=== PATIENT | male | born 1935 | race Caucasian/White ===

== ENCOUNTER 2020-04-14 09:00 | Day surgery (SDC) | payer MEDICARE, OTHER ==
[~2020-04-14] VITALS: Ht 167.6 cm; Wt 83.8 kg
[2020-04-14] VITALS (209 sets, daily range): BP systolic 84–132; BP diastolic 61–79; PULSE 69–93; TEMP 97.8–98; O2SAT 88–98
[~2020-04-14 09:00] MED LIST: ASPIRIN 32325 MG/TAB PO; ASPIRIN 81M81 MG/TA2 PO; BEE POLLEN500 M2 PO; CALCIUM + D 6001 TA1 PO; FORADIL AERO0.012 MG IH; GLUCOPHAGE1000 MG PO; GLUCOTROL 5M5 MG/TAB PO; MULTI VITAMINS1 TAB PO; NATURAL E400 IU PO; NICODERM C21 MG/PATC TOP; PLAVIX 75MG TAB75 MG PO; RT SPIRIVA18 MCG IH; THEO-DUR 3300 MG/TAB PO; THERAGRAN1 TA1 PO; TOPROL XL 50MG50 MG PO; VITAMIN B12100 MCG PO; ZESTRIL 10MG10 MG PO; ZOCOR 20MG20 MG PO
[2020-04-14] MEDS ORDERED: IPRATROPIUM BROM3 M1 IH (10:05)
[2020-04-14] MEDS ORDERED: LASIX 40MG TABL40 MG PO (10:05)
[2020-04-14] MEDS ORDERED: K-TAB20 PO (10:06)
[2020-04-14 10:07] LABS: HEMATOCRIT 51.1 % (42.0-52.0); HEMOGLOBIN 17.1 g/dl (13.5-18.0); MEAN CELL VOLUME 101 fl (80.0-100.0); MEAN CORPUSCULAR HEMOGLOBIN 34 pg (27.0-31.0); MEAN CORPUSCULAR HGB CONC 34 g/dl (33.0-37.0); MEAN PLATELET VOLUME 10.5 fl (7.4-10.4); PLATELET COUNT 149 K/mm3 (130-400); RED BLOOD COUNT 5.05 M/mm3 (4.20-5.60); REDCELL DISTRIBUTION WIDTH-CV 13.7 % (11.5-14.5)
[2020-04-14] MEDS ORDERED: VITAMIN C500 MG PO (10:08)
[2020-04-14] MEDS ORDERED: LANTUS100 U/ML SQ (10:08)
[2020-04-14] MEDS ORDERED: MAGNESIUM250 M1 PO (10:09)
[2020-04-14] MEDS ORDERED: COZAAR 25MG25 MG/TAB PO (10:09)
[2020-04-14] MEDS ORDERED: OMEGA-31 SGL PO (10:10)
[2020-04-14 10:12] LABS: INR 1.1 (0.8-3.0); PROTHROMBIN TIME 12.1 SECONDS (9.7-12.8)
[2020-04-14] MEDS ORDERED: VISION FORMULA1 EAC1 PO (10:13)
[2020-04-14 10:15] LABS: PARTIAL THROMBOPLASTIN TIME 32.7 SECONDS (26.0-37.0)
[2020-04-14 10:16] LABS: CALCIUM 8.7 mg/dL (8.4-10.2); CREATININE, serum 0.71 (0.66-1.25); POTASSIUM 4.3 mmol/L (3.4-5.0)
--- NOTE | 2020-04-14 11:42 | NUR ---
SEE MEREWILMA FOR ALL MEDICATION ADMINISTRATION TIMES AND INTRA AND POST SEDATION
--- NOTE | 2020-04-14 13:45 | NUR ---
Back from [employer] by cart. alert and oriented, denies pain and needs at this time. Right Tband with 17 cc air CD&I, good pulses and cap refill < 3 secs. VSS.
--- NOTE | 2020-04-14 16:30 | NUR ---
Right Tband deflated of 17 cc air, no bleeding noted at incision site, pressure dressing and arm board applied.
--- NOTE | 2020-04-14 17:20 | NUR ---
Report received from [facility] [employer]. Patient walked from express room to IMCU room. Tolerated well, some shortness of breath noted with ambulation. Patient placed on oxygen upon entry into IMCU and per [facility] report. Belongings in hand.
--- NOTE | 2020-04-14 17:22 | NUR ---
Report given to Nicole ESCOBAR. Ambulated with steady gait to [facility].
--- NOTE | 2020-04-14 19:19 | NUR ---
report received from SHAWN Rivera.
[2020-04-15] VITALS (235 sets, daily range): BP systolic 93–113; BP diastolic 57–67; PULSE 71–98; TEMP 97.8–98.4; O2SAT 80–98
[2020-04-15] MEDS ORDERED: BRILINTA90 MG PO (07:15)
[2020-04-15] MEDS ORDERED: LIPITOR20 MG PO (07:15)
[2020-04-15] MEDS ORDERED: ASPIRIN E.C. 8181 MG PO (07:16)
--- NOTE | 2020-04-15 07:16 | NUR ---
REPORT GIVEN TO SHAWN BLOUNT.
--- NOTE | 2020-04-15 10:55 | NUR ---
PT stable moved from unit via wheel chair. PT stable with no chief complaints. PTs friend is avialable to pick him up outside. PT is moved from wheel chair to vehicle with out complications. PT will call with any questions that may arise.
--- NOTE | 2020-04-15 11:49 | NUR ---
The patient discharged before social work professor could do intake.
== END 2020-04-15 10:55 | disposition home or self-care (01) ==
LOC: COL.CAR 09:00 → IMCU 17:03 → COL.CAR 04-15 10:55
PROVIDERS: Internal Medicine Cardiovascular Disease
DX: I25.119 Atherosclerotic heart disease of native coronary artery with unspecified angina pectoris (principal); I11.0 Hypertensive heart disease with heart failure; I50.20 Unspecified systolic (congestive) heart failure; I25.5 Ischemic cardiomyopathy; I35.0 Nonrheumatic aortic (valve) stenosis; I34.0 Nonrheumatic mitral (valve) insufficiency; E11.9 Type 2 diabetes mellitus without complications; E78.5 Hyperlipidemia, unspecified; F17.210 Nicotine dependence, cigarettes, uncomplicated; Z79.899 Other long term (current) drug therapy; Z88.5 Allergy status to narcotic agent
CPT/HCPCS: OP; C1725; C1769; C1874; C1887; C9600; J1644; J1940; J2250; J3010; Q9967

== ENCOUNTER 2020-07-28 10:00 | Outpatient (CLI) | payer MEDICARE, OTHER, BC ==
[~2020-07-28] VITALS: Ht 167.6 cm; Wt 85.0 kg
[~2020-07-28 10:00] MED LIST changes: +ASPIRIN E.C. 8181 MG PO; +BRILINTA90 MG PO; +COZAAR 25MG25 MG/TAB PO; +IPRATROPIUM BROM3 M1 IH; +K-TAB20 PO; +LANTUS100 U/ML SQ; +LASIX 40MG TABL40 MG PO; +LIPITOR20 MG PO; +LUTEIN20 M1 PO; +MAGNESIUM250 M1 PO; +OMEGA-31 SGL PO; +VISION FORMULA1 EAC1 PO; +VITAMIN C500 MG PO
[2020-07-28 10:28] VITALS: BP 129/66; PULSE 94
--- NOTE | 2020-07-28 11:15 | NUR ---
pt had CT of chest, Dr Duarte talked with pt after talking with his Dr. Procedure will be rescheduled from today, pt taken back to [facility]. IV d'cd intact, pt dressed. Dr Duarte into to see pt, new appointment for procedure made in 3 weeks and appt given to pt, also Dr conway called, and he is to [facility] new RX for antibiotic at [facility] today. Pt was discharged taken to [facility], he called for his ride, [id number]
== END 2020-07-28 15:00 | disposition home or self-care (01) ==
LOC: COL.RAD 10:00
DX: J98.4 Other disorders of lung (principal); R04.2 Hemoptysis

== ENCOUNTER 2020-08-11 08:30 | Outpatient (CLI) | payer MEDICARE, OTHER ==
[~2020-08-11] VITALS: Ht 167.6 cm; Wt 82.2 kg
[2020-08-11] VITALS (17 sets, daily range): BP systolic 97–125; BP diastolic 57–78; PULSE 63–84
[~2020-08-11 08:30] MED LIST changes: +ANTIBIOTIC PO
--- NOTE | 2020-08-11 10:50 | NUR ---
pt to Ct per ambulation. Monitors applied. O2 on at 2l/nc.
--- NOTE | 2020-08-11 11:15 | NUR ---
Specimens obtained by Dr Duarte and placed in formalin. Specimen labeled. Pt starting to cough up bright red blood. Pt encouraged to not cough if he can.
--- NOTE | 2020-08-11 14:04 | NUR ---
Discharge instructions given to pt.pt verbalizes understanding.INT removed,catheter tip intact.Pt escorted out via wheelchair by this nurse.
== END 2020-08-11 14:25 | disposition home or self-care (01) ==
LOC: COL.RAD 08:30
DX: C34.12 Malignant neoplasm of upper lobe, left bronchus or lung (principal)

== ENCOUNTER → 2021-03-21 | Outpatient (CLI) | payer MEDICARE, OTHER ==
[2021-03-21 15:56] LABS: BILIRUBIN,TOTAL 0.6 mg/dL (0.0-1.0); CALCIUM 9.2 mg/dL (8.4-10.2); CREATININE, serum 0.89 (0.66-1.25); MAGNESIUM 2.1 mg/dL (1.6-2.3); TOTAL PROTEIN 6.7 gm/dL (6.4-8.2)
== END ==
LOC: ZCOL.LAB 15:44
PROVIDERS: Internal Medicine Cardiovascular Disease
DX: R06.09 Other forms of dyspnea (principal)

== ENCOUNTER 2022-03-21 06:33 | Outpatient (CLI) | payer MEDICARE, OTHER ==
[2022-03-21] VITALS (18 sets, daily range): BP systolic 98–130; BP diastolic 52–80; PULSE 72–90; TEMP 97.7
[~2022-03-21] VITALS: Ht 167.6 cm; Wt 85.3 kg
[~2022-03-21 06:33] MED LIST changes: +ALDACTONE 25MG25 M1 PO; +CARDIZEM 90MG T90 MG PO; +CRESTOR 10MG10 MG PO; +NORVASC 5MG5 MG/TAB PO; +OMEGA-3 1000 MG1 CAP PO; +ZEBETA 5MG5 MG PO
--- NOTE | 2022-03-21 07:02 | NUR ---
pt states that he quit taking all his meds except his insulin five (5) days ago.
--- NOTE | 2022-03-21 09:28 | NUR ---
pt arrives to [facility] from Radiology, staff help room pt. Report given to SHAWN Mclean. SHAWN Mclean gave report to this nurse at bedside. Bed low and locked, call light with pt. Pt uses O2 at night and is requiring O2 at this time. Pt is mouth breather so pt placed his NC at his mouth. VSS. Will continue to monitor.
--- NOTE | 2022-03-21 12:40 | NUR ---
DC instructions reviewed with pt and friend. He expresses understanding. He is assisted out to friend's car for ride home by wheelchair. Respirations even and unlabored. Bandaid on back at puncture site remains clean, dry and intact.
== END 2022-03-21 12:20 | disposition home or self-care (01) ==
LOC: COL.RAD 06:33
DX: C34.12 Malignant neoplasm of upper lobe, left bronchus or lung (principal); R91.8 Other nonspecific abnormal finding of lung field; F17.218 Nicotine dependence, cigarettes, with other nicotine-induced disorders; Z92.3 Personal history of irradiation
CPT/HCPCS: 32107